=== PATIENT | female | born 1975 | race Caucasian/White ===

== ENCOUNTER → 2018-03-29 | Outpatient (CLI) | payer OTHER, BC | LOC: RAD 15:55 | DX: E04.1 Nontoxic single thyroid nodule (principal); M54.2 Cervicalgia ==

== ENCOUNTER → 2018-05-04 | Outpatient (CLI) | payer BC ==
[2018-05-04 10:00] LABS: BASO # 0.1 (0.02-0.10); EOS # 0.5 (0.04-0.40); EOS % 4.9 % (1.0-5.0); HEMATOCRIT 41.3 % (37.0-47.0); HEMOGLOBIN 13.4 g/dL (12.5-16.0); LYMPH# 2.9 (1.50-4.00); MEAN CELL VOLUME 93 fl (78-100); MEAN CORPUSCULAR HEMOGLOBIN 30 pg (27-31); MEAN CORPUSCULAR HGB CONC 32 g/dL (33-37); MEAN PLATELET VOLUME 11.8 fl (7.4-10.4); MONO # 0.8 (0.20-0.80); NEU # 5.6 (1.40-6.50); PLATELET COUNT 263 K/mm3 (130-400); RED BLOOD COUNT 4.45 M/mm3 (4.10-5.30); RED CELL DISTRIBUTION WIDTH 13.3 % (11.5-14.5); WHITE BLOOD COUNT 9.9 K/mm3 (4.8-10.8)
[2018-05-04 10:14] LABS: ALBUMIN 4.4 g/dL (3.5-5.0); CALCIUM 9.2 mg/dL (8.4-10.2); POTASSIUM 4.1 mmol/L (3.6-5.0); TOTAL BILIRUBIN 0.6 mg/dL (0.2-1.3); TOTAL PROTEIN 7.4 g/dL (6.3-8.2)
== END ==
LOC: LAB 09:41
PROVIDERS: Family Medicine
DX: Z00.00 Encounter for general adult medical examination without abnormal findings (principal); E03.9 Hypothyroidism, unspecified

== ENCOUNTER → 2018-05-06 | Outpatient (CLI) | payer BC | LOC: RAD 08:58 | DX: E04.1 Nontoxic single thyroid nodule (principal) ==

== ENCOUNTER → 2019-06-07 | Outpatient (CLI) | payer BC ==
[2019-06-07 14:19] LABS: POTASSIUM 3.6 mmol/L (3.5-5.1)
[2019-06-07 14:20] LABS: ALBUMIN 4.3 g/dL (3.5-5.0)
[2019-06-07 14:21] LABS: CALCIUM 8.7 mg/dL (8.3-10.5)
[2019-06-07 14:22] LABS: TOTAL PROTEIN 7.4 g/dL (6.4-8.3)
[2019-06-07 14:23] LABS: EOS # 0.2 (0.04-0.40); EOS % 2.9 % (1.0-5.0); HEMATOCRIT 37.8 % (37.0-47.0); HEMOGLOBIN 12.2 g/dL (12.5-16.0); MEAN CELL VOLUME 94 fl (78-100); MEAN CORPUSCULAR HEMOGLOBIN 30 pg (27-31); MEAN CORPUSCULAR HGB CONC 32 g/dL (33-37); MEAN PLATELET VOLUME 11.8 fl (7.4-10.4); MONO # 0.6 (0.20-0.80); NEU # 3.9 (1.40-6.50); PLATELET COUNT 246 K/mm3 (130-400); RED BLOOD COUNT 4.04 M/mm3 (4.10-5.30); RED CELL DISTRIBUTION WIDTH 13.2 % (11.5-14.5); WHITE BLOOD COUNT 7.7 K/mm3 (4.8-10.8)
[2019-06-07 14:24] LABS: TOTAL BILIRUBIN 0.5 mg/dL (0.2-1.2)
== END ==
LOC: LAB 13:58
PROVIDERS: Family Medicine
DX: Z00.00 Encounter for general adult medical examination without abnormal findings (principal); E78.5 Hyperlipidemia, unspecified; E03.9 Hypothyroidism, unspecified

== ENCOUNTER → 2019-06-22 | Outpatient (CLI) | payer BC | LOC: MAMMO 13:17 | DX: E04.2 Nontoxic multinodular goiter (principal) ==

== ENCOUNTER → 2021-03-11 | Outpatient (CLI) | payer BC | LOC: LAB 14:15 | DX: E03.9 Hypothyroidism, unspecified (principal) ==

== ENCOUNTER → 2022-06-27 | Outpatient (CLI) | payer BC ==
[2022-06-27 23:09] LABS: FOLLICLE STIMULATING HORMONE 5.6 mIU/mL (()); LUTENIZING HORMONE 2.5 mIU/mL (()); PROGESTERONE 11.9 ng/mL (())
== END ==
LOC: LAB 12:54
PROVIDERS: Family Medicine
DX: E89.41 Symptomatic postprocedural ovarian failure (principal)

== ENCOUNTER → 2023-02-27 | Outpatient (CLI) | payer BC | LOC: LAB 11:36 | DX: E03.9 Hypothyroidism, unspecified (principal); E06.3 Autoimmune thyroiditis; F32.A Depression, unspecified; R23.1 Pallor ==

== ENCOUNTER → 2024-01-08 | Outpatient (CLI) | payer BC ==
[2024-01-08 15:01] LABS: BASO # 0.04 K/mm3 (0.02-0.10); EOS # 0.25 K/mm3 (0.04-0.40); EOS % 3.8 % (1.0-5.0); HEMATOCRIT 39.7 % (37.0-47.0); HEMOGLOBIN 13.1 g/dL (12.5-16.0); LYMPH# 2.37 K/mm3 (1.50-4.00); MEAN CELL VOLUME 93 fl (78-100); MEAN CORPUSCULAR HEMOGLOBIN 31 pg (27-31); MEAN CORPUSCULAR HGB CONC 33 g/dL (33-37); MEAN PLATELET VOLUME 11.3 fl (7.4-10.4); MONO # 0.57 K/mm3 (0.20-0.80); NEU # 3.43 K/mm3 (1.40-6.50); PLATELET COUNT 241 K/mm3 (130-400); RED BLOOD COUNT 4.28 M/mm3 (4.10-5.30); RED CELL DISTRIBUTION WIDTH 12.9 % (11.5-14.5); WHITE BLOOD COUNT 6.7 K/mm3 (4.8-10.8)
[2024-01-08 15:02] LABS: ALBUMIN 4.5 g/dL (3.5-5.0)
[2024-01-08 15:03] LABS: CALCIUM 9.7 mg/dL (8.3-10.5)
[2024-01-08 15:05] LABS: TOTAL PROTEIN 7.8 g/dL (6.4-8.3)
[2024-01-08 15:07] LABS: TOTAL BILIRUBIN 0.5 mg/dL (0.2-1.2)
== END ==
LOC: LAB 14:34
PROVIDERS: Nurse Practitioner
DX: Z00.00 Encounter for general adult medical examination without abnormal findings (principal); Z13.220 Encounter for screening for lipoid disorders; E03.9 Hypothyroidism, unspecified